=== PATIENT | female | born 1955 | race Caucasian/White ===

== ENCOUNTER 2021-02-08 12:07 | Outpatient (REF) | payer MEDICARE, SELFPAY ==
[2021-02-08 13:58] LABS: COVID-19 Test Negative (Negative)
== END 2021-02-08 12:08 | disposition home or self-care (01) ==
LOC: HO.LAB 12:07
PROVIDERS: PCP Nurse Practitioner Adult Health; Visit Provider Internal Medicine
DX: Z20.822 Contact with and (suspected) exposure to COVID-19 (principal)
CPT/HCPCS: 36415; 87635; C9803